=== PATIENT | male | born 1970 | race Caucasian/White ===

== ENCOUNTER 2018-09-25 14:09 | Emergency (ER) | payer OTHER ==
[~2018-09-25] VITALS: Ht 188 cm; Wt 104.3 kg
[2018-09-25] MEDS ORDERED: HYDROXYZINE PAM25 MG PO (14:34)
--- NOTE | 2018-09-26 13:32 | EKG ---
[facility] [address] [facility] [place] [address] Signed Normal sinus rhythm with sinus arrhythmia Normal ECG No previous ECGs available Confirmed by HOLLY ARTEAGA DO ([id number]) on 09/26/2018 1:32:21 PM Electronically Signed By: HOLLY ARTEAGA DO 09/26/18 1332 PATIENT NAME: JOSE ALBERTO DONOVAN Electrocardiogram DATE OF : 66 PHYSICIAN: HOLLY ARTEAGA DO REPORT #: [id number] REPORT IS CONFIDENTIAL AND NOT TO BE RELEASED WITHOUT AUTHORIZATION
== END 2018-09-25 16:30 | disposition home or self-care (01) ==
LOC: ED 14:09
DX: R00.2 Palpitations (principal); F41.9 Anxiety disorder, unspecified; F17.200 Nicotine dependence, unspecified, uncomplicated; Z90.49 Acquired absence of other specified parts of digestive tract; Z88.0 Allergy status to penicillin; Z79.899 Other long term (current) drug therapy
CPT/HCPCS: 80053; 84484; 85025; 93005; 93010; 96360; 99284-25; J7030